=== PATIENT | female | born 1945 | race Caucasian/White ===

== ENCOUNTER 2023-12-10 11:23 | Emergency (ER) | payer MEDICARE, OTHER, SELFPAY ==
[2023-12-10] VITALS (11 sets, daily range): BP systolic 89–163; BP diastolic 42–122; PULSE 82–103; BMI 26.1
--- NOTE | 2023-12-10 12:06 | ED.GENMED ---
History of Present Illness
General
Chief Complaint: Fall
Source: patient, ambulance crew and detention
Exam Limitations: clinical condition
Time Seen by Provider: 12/10/23 11:48
Travel History
Have you had any contact with someone who has COVID-19?: No
Do you have any symptoms of coronavirus? Fever > 100 degrees, chills, cough, shortness of breath, sore throat, loss of taste or smell, muscle aches, or headache?: Yes
Symptoms:: positive today
History of Present Illness
History of Present Illness:
pt s a 78 y/o F coming from [facility] where she has been ther ea few day sfor genearlized weakness/dehdyration
covid pos yesterday, tested because of a fever and a cough
this morning was found on the ground on her bottom after an apparent fall
pt says she was walking and felt generally weak and slid down the wall; she denies that she hit her head but she also confused some details; initially told me that someone was in the room when she fell but then the RN from [facility] whom i
spoke with confirmed she was not in the room
pt was awke and oriented when she got there
pt was on her buttocks
she said she didn't bump her head
had some mild confusion since yesterday
Past History
Past History
ED Past Medical History: Hypercholesterolemia, NIDDM and Other (renal stone, uti, renal failure, hydro, ckd)
Social History
Tobacco: Non-smoker
Alcohol: None
Drug: None
Personal: Single
Living: detention
Review of Systems
Review of Systems
Allergies reviewed?: Yes
All Other Systems: Not applicable
Phy Exam
Physical Exam
Physical Exam:
GENERAL: Alert , in no apparent distress
HEAD: NCAT
NECK: no midline tenderness, active ROM intact, no paraspinal muscle tenderness;
EYE: pupils equal and reactive, EOMs intact.
ENT: o/p clr, mmm. no hemotympanum
CARDIAC: Regular rate and rhythm, no edema
LUNGS: Clear breath sounds bilaterally, no acute respiratory distress, no wheezes/rales/rhonchi occasional cough
ABDOMEN: Soft, without focal tenderness, no r/g, no cvat
NEUROLOGICAL: Alert and oriented, seems a little bit confused, has answered questions which sound reliable but then when I asked the nurse there is a different story, no focal neuro deficits, CN intact, 5/5 strength, sensation intact
SKIN: Warm and dry, ecchymosis right shoulder without tenderness
MUSCULOSKELETAL: No edema, well perfused.
Appreciate the contusion on the patient's right shoulder but she is not tender and has full painless range of motion
PSYCH: Normal and appropriate interaction.
Course
Orders/Labs/Results
Orders:
Orders
12/10/23 12:02
Electrocardiogram (*1) Urgent
Reason for Study: Fatigue / Weakness
EKG- Treatment ONCE
Orthostatic VS- Treatment ONCE
CR Chest - 2 Views Urgent
Comment:
Reason For Exam: covid pos, cough, weak
12/10/23 12:04
CT Head W/o Iv Contrast Urgent
Comment:
Reason For Exam: fall unwitnessed
0.9% Sodium Chloride 500 ml [Nss] 500 ml IV BOLUS
12/10/23 12:28
CPK [Creatine Phosphokinase] Urgent
Complete Blood Count/With Diff Urgent
Comprehensive Metabolic Panel Urgent
Abnormal Lab Results
12/10/23
12:28
RBC 3.37 L 10^6/uL
(4.20-5.40)
Hgb 10.7 L g/dL
(12.0-16.0)
Hct 32.9 L %
(37.0-47.0)
MCH 31.8 H pg
(27.0-31.0)
MCHC 32.5 L g/dL
(33.0-37.0)
RDW 14.6 H %
(11.5-14.5)
MPV 10.6 H fL
(7.4-10.4)
Abs Immat Gran (auto) 0.1 H 10^3/uL
(0-0.05)
Absolute Lymphs (auto) 0.6 L 10^3/uL
(1.2-3.4)
Absolute Monos (auto) 0.9 H 10^3/uL
(0.1-0.6)
Immature Gran % 0.9 H %
(0-0.5)
Neutrophils % 76.6 H %
(42.2-75.2)
Lymphocytes % 8.1 L %
(20.5-51.1)
Monocytes % 10.8 H %
(1.7-9.3)
Chloride 111 H mmol/L
(98-107)
Carbon Dioxide 20 L mmol/L
(22-30)
BUN 30 H mg/dl
(7-17)
Creatinine 1.7 H mg/dL
(0.6-1.0)
Total Protein 6.0 L g/dl
(6.3-8.2)
Albumin 3.2 L g/dl
(3.5-5.0)
12/10/23 12:28
12/10/23 12:28
Vital Signs
Initial and Last Documented VS:
Initial Vital Signs
BP
102/64
12/10/23 11:27
Last Documented Vital Signs
Temp Pulse Resp BP Pulse Ox
98.2 F 81 18 162/61 99
12/10/23 11:31 12/10/23 11:31 12/10/23 11:31 12/10/23 15:30 12/10/23 16:00
MDM/Problems Addressed
Differential Diagnosis Includes:
Head injury, metabolic encephalopathy, COVID, weakness, orthostasis, dehydration
MDM/Problems Addressed:
Patient is a 78-year-old coming from a rehab after recent admission at [facility] for falls and dehydration who presents after a fall this morning which was unwitnessed but the patient was only on the ground for maybe 10 or 15 minutes according to
the nurse that I spoke with. Patient does recall that she slid down the wall and does not believe that she hit her head. She was resting on her buttocks when the nurse got to her. She was sitting against the wall. Patient is not anticoagulated.
She has chronic kidney disease with a creatinine of 1.5, I had the nurse from the rehab fax me the recent blood work from [facility] with a hemoglobin of 10 and a creatinine of 1.5. Her lab work today is nearly identical. She has a normal white
count. Patient has no fever. She is known to be COVID-positive since yesterday when she presented there without cough and fever. They thought maybe she was a little bit more confused from her baseline this morning which could be related to COVID
or they were wondering whether she had a head injury. On exam the patient was occasionally mildly confused about what happened today but otherwise seemed appropriate. She had no complaints. She remained normotensive and afebrile. She had a
negative orthostatics. She was given a small fluid bolus for creatinine being slightly higher than normal from 1.5-1.7. But I spoke with the nurse there and felt that she was reasonable to be transported back
Her head CT was negative
*Critical Care Note
Total Time (30-74mins, 75-104mins- exclusive of procedures): Not Applicable
ED Attending Note
-
Portions of this chart may have been created with voice recognition software.� Occasional wrong word or��sound alike� substitutions may have occurred due to the inherent limitations of voice recognition software.
Discharge Plan
Departure
Patient Disposition: Assisted Living
Date of Disposition: 12/10/23
Time of Disposition: 15:19
Patient with high blood pressure during this ER visit?: No
Condition: Fair
Covid-19: Not Applicable
Discharge Problem:
COVID-19, Dehydration, Fall
Instructions: Dehydration, Adult (DC), COVID-19 (DC)
Referrals:
Aj Espinosa I., DO [Family Provider] - Tomorrow
Activity Restrictions/Additional Instructions:
STEFANIE WAS PROBABLY A LITTLE DEHYDRATED
WE GAVE HER SOME FLUIDS
HER HEAD CT WAS NEGATIVE FOR TRAUMA
SHE HAD A NORMAL WHITE COUNT
SHE HAD NO PNEUMONIA
HER OXYGEN AND BLOOD PRESSURE WERE GOOD
RETURN FOR ANY CONCERNS
SHE HAS A BRUISE ON HER SHOULDER WITHOUT ANY TENDENRESS AND WITH FULL RANGE OF MOTION.
Interventions
Interventions:
*Risk Screen - Suicide Last Done: 12/10/23 11:31
*General Assessment Last Done: 12/10/23 11:31
*Neglect/Abuse Screening Last Done: 12/10/23 11:31
ED- Fall Risk Assessment Last Done: 12/10/23 18:01
*ED COVID-19 Vaccine History Last Done: 12/10/23 11:31
*Nursing Disposition Last Done: 12/10/23 18:01
ED-Musculoskeletal Assessment Last Done: 12/10/23 11:40
ED- Neurological Assessment Last Done: 12/10/23 11:40
ED-Skin Assessment Last Done: 12/10/23 11:40
Discharge Date and Time
Discharge Date/Time: 12/10/23 18:02
[2023-12-10] MEDS: NSS 500 IV (12:28)
[2023-12-10 12:44] LABS: % Basophils 0.9 % (0-2); % Eosinophils 2.7 % (0-6); % Immature Granulocytes 0.9 % (0-0.5); % Lymphocytes 8.1 % (20.5-51.1); % Monocytes 10.8 % (1.7-9.3); % Neutrophils 76.6 % (42.2-75.2); Absolute Basophils 0.1 10^3/uL (0-0.2); Absolute Eosinophils 0.2 10^3/uL (0-0.7); Absolute Immature Granulocytes 0.1 10^3/uL (0-0.05); Absolute Lymphocytes 0.6 10^3/uL (1.2-3.4); Absolute Monocytes 0.9 10^3/uL (0.1-0.6); Hematocrit 32.9 % (37.0-47.0); Hemoglobin 10.7 g/dL (12.0-16.0); Mean Corp Hgb Conc. 32.5 g/dL (33.0-37.0); Mean Corpuscular Hgb 31.8 pg (27.0-31.0); Mean Corpuscular Volume 97.6 fL (81.0-99.0); Mean Platelet Volume 10.6 fL (7.4-10.4); Nucleated Red Blood Cells % 0 %; Platelet Count 306 10^3/uL (130-400); Red Blood Cell Count 3.37 10^6/uL (4.20-5.40); Red Cell Dist. Width 14.6 % (11.5-14.5); White Blood Cell Count 7.9 10^3/uL (4.8-10.8)
[2023-12-10 12:58] LABS: ALT (SGPT) 24 U/L (0-35); AST (SGOT) 36 U/L (14-36); Albumin 3.2 g/dl (3.5-5.0); Alkaline Phosphatase 98 U/L (38-126); Blood Urea Nitrogen 30 mg/dl (7-17); Calcium 10.2 mg/dl (8.4-10.2); Carbon Dioxide 20 mmol/L (22-30); Chloride 111 mmol/L (98-107); Creatine Phosphokinase 49 U/L (30-135); Estimated Creatinine Clearance 22 ml/min; Glucose 83 mg/dl (70-99); Potassium 4.5 mmol/L (3.5-5.1); Sodium 136 mmol/L (135-145); Total Bilirubin 0.6 mg/dl (0.2-1.3)
== END 2023-12-10 18:02 ==
LOC: EMR 11:23
PROVIDERS: Physician Assistant; EMERGENCY PHYSICIAN Emergency Medicine; FAMILY PHYSICIAN Internal Medicine
DX: U07.1 COVID-19 (principal); E86.0 Dehydration; W19.XXXA Unspecified fall, initial encounter; E78.00 Pure hypercholesterolemia, unspecified; E11.22 Type 2 diabetes mellitus with diabetic chronic kidney disease; N18.9 Chronic kidney disease, unspecified; Z87.440 Personal history of urinary (tract) infections
CPT/HCPCS: 99284; 96360; 70450; 71046; 80053; 82550; 85025; 93005